=== PATIENT | female | born 1940 | race African-American/Black ===

== ENCOUNTER 2016-10-15 17:53 | Emergency (ER) | payer MEDICARE ==
[~2016-10-15] VITALS: Ht 160 cm; Wt 84.0 kg
[2016-10-15] MEDS ORDERED: LOSA100T14 PO (18:06)
[2016-10-15] MEDS ORDERED: SIMV40TA5 PO (18:06)
[2016-10-15] MEDS ORDERED: ASPI-1035 PO (18:06)
[2016-10-15] MEDS ORDERED: IBUP-1509 PO (18:06)
[2016-10-15] MEDS ORDERED: ATEN50TA PO (18:06)
[2016-10-15] MEDS ORDERED: OMEP20TA80 PO (18:06)
[2016-10-15] MEDS ORDERED: LEVO50TA8 PO (18:06)
[2016-10-15] MEDS ORDERED: KETOROLAC 30MG/ML VIAL IV STA (19:00)
[2016-10-15] MEDS ORDERED: MORPHINE SULFATE 4 MG/ML CPJ (NOT FOR IM USE) IV STA (19:00)
[2016-10-15] MEDS ORDERED: ONDANSETRON HCL 4MG/2ML VIAL IV STA (19:00)
[2016-10-15 19:14] LABS: BASOPHILS % 0.5 % (0.0-2.0); DIFFERENTIAL COMMENT 0; EOSINOPHILS % 4.6 % (0.0-5.0); HEMATOCRIT. 39.7 % (36.0-48.0); HEMOGLOBIN. 13.8 g/dL (12.0-16.0); MEAN CORPUSCULAR HGB CONC 34.8 g/dL (31.0-37.0); MEAN CORPUSCULAR VOLUME 94.7 fL (81.0-99.0); MEAN PLATELET VOLUME 9.1 fl (7.4-10.4); MONOCYTES % 7.4 % (2.0-8.0); NEUTROPHILS % 48.5 % (40.0-76.0); PLATELET 177 x1000/uL (130-400); RED CELL DISTRIBUTION WIDTH 13.2 % (11.6-14.6); WHITE BLOOD COUNT 4.7 x1000/uL (4.5-11.0)
[2016-10-15 19:21] LABS: INR 1.1
[2016-10-15 19:31] LABS: ALANINE AMINOTRANSFERASE 15 IU/L (13-61); ALBUMIN 3.5 g/dL (3.4-5.0); ANION GAP 12; CALCIUM 9.3 mg/dL (8.5-10.1); CARBON DIOXIDE 27 mEq/L (21-32); CHLORIDE 104 mEq/L (98-107); CREATINE KINASE 111 IU/L (26-192); INDEX HEMOLYSI 1 (1-3); INDEX ICTERIC 1 (1-4); INDEX LIPEMIC 1 (1-3); LIPASE 179 IU/L (73-393); NT PRO B-TYPE NATRIURETIC PEP 27 pg/mL (5-125); TROPONIN I < 0.02 ng/mL (0.00-0.04); UREA NITROGEN BLOOD 15 mg/dL (7-21); eGFR 44 mL/min (>60)
[2016-10-15 21:25] VITALS: BP 106/55
[2016-10-15 21:46] LABS: CLARITY URINE CLOUDY (CLEAR); COLOR URINE DARK YELLOW (YELLOW); GLUCOSE URINE NEGATIVE (NEGATIVE); KETONES URINE TRACE (NEGATIVE); LEUKOCYTE ESTERASE URINE 2+ (NEGATIVE); NITRITE URINE NEGATIVE (NEGATIVE); OCCULT BLOOD URINE NEGATIVE (NEGATIVE); PH URINE 5.5 (4.5-8.0); PROTEIN URINE TRACE (NEGATIVE); SPECIFIC GRAVITY URINE 1.018 (1.005-1.030)
[2016-10-15 22:29] LABS: BACTERIA URINE 3+; RBC URINE 0-2 /hpf (0-2)
[2016-10-15 22:30] LABS: MUCUS URINE 2+ /lpf (< = 2+); SQUAMOUS EPITHELIAL CELL URINE 2+ /lpf (RARE/1+); WBC URINE 25-50 /hpf (0-2)
== END 2016-10-15 22:57 | disposition home or self-care (01) ==
LOC: ER 17:54
DX: S76.011A Strain of muscle, fascia and tendon of right hip, initial encounter (principal); D21.9 Benign neoplasm of connective and other soft tissue, unspecified; M19.90 Unspecified osteoarthritis, unspecified site; I10 Essential (primary) hypertension; F17.210 Nicotine dependence, cigarettes, uncomplicated; Z79.1 Long term (current) use of non-steroidal anti-inflammatories (NSAID); Z79.899 Other long term (current) drug therapy; X58.XXXA Exposure to other specified factors, initial encounter; Y93.89 Activity, other specified; Y92.89 Other specified places as the place of occurrence of the external cause; Y99.8 Other external cause status
CPT/HCPCS: 36415; 72170; 74176; 80053; 81001; 82550; 83690; 83880; 84484; 85025; 85610; 93970; 96374; 99285; J1885

== ENCOUNTER 2021-12-23 23:26 | Inpatient (IN) | payer MEDICARE, MEDICAID ==
[~2021-12-23] VITALS: Ht 152.4 cm; Wt 49.0 kg
[~2021-12-23 23:26] MED LIST: ASPI-1497 PO; ATEN50TA PO; IBUP-2028 PO; LEVO50TA8 PO; LOSA100T32 PO; OMEP20TA23 PO; SIMV-46 PO
[2021-12-24] MEDS ORDERED: VANCOMYCIN 1G PREMIX 200 ML IV ONE (00:30)
[2021-12-24] MEDS ORDERED: PIPERACILLIN/TAZ 3.375G PREMIX 50 ML IV ONE (00:30)
[2021-12-24] MEDS ORDERED: AZITHROMYCIN 500MG/250ML 250 ML IV ONE (00:30)
[2021-12-24] MEDS ORDERED: SODIUM CHLORIDE 0.9% 1000ML BAG (SEPSIS BOLUS) IV ONE (00:30)
[2021-12-24 00:44] LABS: BASOPHILS % 0.7 % (0.0-2.0); EOSINOPHILS % 0.1 % (0.0-5.0); HEMATOCRIT. 38.7 % (36.0-48.0); HEMOGLOBIN. 13.1 g/dL (12.0-16.0); LYMPHOCYTES % 9.3 % (20.0-50.0); MEAN CORPUSCULAR HEMOGLOBIN 32.8 pg (28.0-32.0); MEAN CORPUSCULAR VOLUME 97.2 fL (81.0-99.0); MONOCYTES % 10.7 % (2.0-8.0); NEUTROPHILS % 79.2 % (40.0-76.0); PLATELET 206 x1000/uL (130-400); RED BLOOD CELL COUNT 3.98 mill/uL (4.2-5.4); RED CELL DISTRIBUTION WIDTH 13.2 % (11.6-14.6)
[2021-12-24] MEDS ORDERED: VANCOMYCIN 1GM PMX (XELLIA) 200 ML IV NR (00:45)
[2021-12-24 00:50] LABS: CHLORIDE 105 mEq/L (98-107)
[2021-12-24 01:35] LABS: PROTHROMBIN TIME 10.9 sec (9.6-11.0)
[2021-12-24 02:11] LABS: CLARITY URINE CLEAR (CLEAR); COLOR URINE YELLOW (YELLOW); KETONES URINE NEGATIVE (NEGATIVE); LEUKOCYTE ESTERASE URINE 1+ (NEGATIVE); NITRITE URINE NEGATIVE (NEGATIVE); OCCULT BLOOD URINE NEGATIVE (NEGATIVE); PH URINE 5.5 (4.5-8.0); PROTEIN URINE NEGATIVE (NEGATIVE); UROBILINOGEN URINE 0.2 E.U./dL (0.2-1.0)
[2021-12-24] MEDS ORDERED: IPRATROPIUM/ALBUTEROL 0.5-3(2.5)MG/3ML NEB HHN PRN (07:00)
[2021-12-24] MEDS ORDERED: TRAMADOL 50MG TABLET PO PRN (07:00)
[2021-12-24] MEDS ORDERED: ACETAMINOPHEN 325MG TABLET PO PRN (07:00)
[2021-12-24] MEDS ORDERED: CLONIDINE 0.1MG TABLET PO PRN (07:00)
[2021-12-24] MEDS ORDERED: NA PHOS,M-B/NA PHOS,DI-BA ENEMA 118ML PR PRN (07:00)
[2021-12-24] MEDS ORDERED: NITROGLYCERIN 0.4MG TABLET SL SL PRN (07:00)
[2021-12-24] MEDS ORDERED: MAGNESIUM/ALUMINUM HYDROXIDE/SIMETHICONE 30ML UDC PO PRN (07:00)
[2021-12-24] MEDS ORDERED: DOCUSATE SODIUM 100MG CAPSULE PO PRN (07:00)
[2021-12-24] MEDS ORDERED: GUAIFENESIN 200MG/10ML SUGAR FREE UDC PO PRN (07:00)
[2021-12-24] MEDS ORDERED: PIPERACILLIN/TAZ 3.375G PREMIX 50 ML IV SCH (07:15)
[2021-12-24 07:36] LABS: T4 FREE 1.46 ng/dL (0.76-1.46)
[2021-12-24 07:57] LABS: FOLIC ACID (FOLATE) SERUM 10.4 ng/mL (>5.38)
[2021-12-24 09:00] VITALS: BP 127/75
[2021-12-24] MEDS: ASPIRIN 325MG EC TABLET PO SCH ×2 (10:30→12:49)
[2021-12-24] MEDS ORDERED: NALOXONE HCL 0.4MG/ML VIAL IV PRN (10:30)
[2021-12-24] MEDS: ASCORBIC ACID 500 MG TABLET PO SCH ×3 (10:30→21:00)
[2021-12-24] MEDS: FAMOTIDINE 20MG TABLET PO SCH ×2 (10:30→12:49)
[2021-12-24] MEDS: LEVOTHYROXINE SODIUM 100MCG TABLET PO SCH ×2 (10:30→12:49)
[2021-12-24] MEDS: ZINC SULFATE 220 MG ( 50 ) CAPSULE PO SCH ×2 (10:30→12:49)
[2021-12-24] MEDS ORDERED: CLON0.1T MT (10:33)
[2021-12-24] MEDS ORDERED: MELA3TAB40 MT (10:33)
[2021-12-24] MEDS ORDERED: FAMO20TA8 MT (10:33)
[2021-12-24] MEDS ORDERED: LEVO125T8 MT (10:33)
[2021-12-24 12:00] VITALS: BP 122/81
[2021-12-24] MEDS: ENOXAPARIN 40MG/0.4ML SYR SUBCUT SCH (12:47)
[2021-12-24] MEDS: PIPERACILLIN/TAZOBACTAM 3.375G in DEXT 5% WATER 50ML IV SCH ×2 (12:48→22:39)
[2021-12-24 16:00] VITALS: BP 118/77
[2021-12-24 16:15] LABS: CREATINE KINASE MB FRACTION 1.6 ng/mL (0.5-3.6)
[2021-12-24] MEDS: ONDANSETRON HCL 4MG/2ML INJ IV PRN (17:09)
[2021-12-24] MEDS: VANCOMYCIN 750MG PREMIX 150 ML IV SCH (19:04)
[2021-12-24] MEDS ORDERED: NON FORMULARY PATIENT HOME MED XX SCH (19:45)
[2021-12-24 20:00] VITALS: BP 107/51
[2021-12-24] MEDS ORDERED: ZOLPIDEM TARTRATE 5MG TABLET PO PRN (21:00)
[2021-12-25] VITALS: BP 110/51
[2021-12-25 00:35] LABS: CREATINE KINASE MB FRACTION 1.7 ng/mL (0.5-3.6)
[2021-12-25] MEDS: KETOROLAC 15MG/ML VIAL IV PRN (02:21)
[2021-12-25 04:00] VITALS: BP 137/63
[2021-12-25 05:40] LABS: BASOPHILS % 0.4 % (0.0-2.0); EOSINOPHILS % 0.9 % (0.0-5.0); HEMATOCRIT. 36.1 % (36.0-48.0); HEMOGLOBIN. 12.3 g/dL (12.0-16.0); LYMPHOCYTES % 18.1 % (20.0-50.0); MEAN PLATELET VOLUME 8.6 fl (7.4-10.4); MONOCYTES % 10.3 % (2.0-8.0); NEUTROPHILS % 70.3 % (40.0-76.0); PLATELET 156 x1000/uL (130-400); RED BLOOD CELL COUNT 3.72 mill/uL (4.2-5.4); RED CELL DISTRIBUTION WIDTH 13.3 % (11.6-14.6)
[2021-12-25 05:58] LABS: CHLORIDE 103 mEq/L (98-107)
[2021-12-25 06:08] LABS: PHOSPHORUS 2.7 mg/dL (2.5-4.9)
[2021-12-25] MEDS: PIPERACILLIN/TAZOBACTAM 3.375G in DEXT 5% WATER 50ML IV SCH ×3 (06:15→22:18)
[2021-12-25] MEDS: LEVOTHYROXINE SODIUM 100MCG TABLET PO SCH (06:34)
[2021-12-25 08:06] VITALS: BP 113/70
[2021-12-25] MEDS: ASPIRIN 325MG EC TABLET PO SCH (09:00)
[2021-12-25] MEDS: ZINC SULFATE 220 MG ( 50 ) CAPSULE PO SCH (09:00)
[2021-12-25] MEDS: FAMOTIDINE 20MG TABLET PO SCH (09:00)
[2021-12-25] MEDS: ASCORBIC ACID 500 MG TABLET PO SCH ×2 (09:00→20:29)
[2021-12-25] MEDS ORDERED: HALOPERIDOL LACTATE 5MG/ML VIAL IM SCH (10:00)
[2021-12-25] MEDS: ENOXAPARIN 40MG/0.4ML SYR SUBCUT SCH (11:27)
[2021-12-25 12:19] VITALS: BP 126/68
[2021-12-25] MEDS: VANCOMYCIN 750MG PREMIX 150 ML IV SCH (13:46)
[2021-12-25] MEDS: DEXT 5%/0.9% NACL 1,000 ML IV SCH (13:47)
[2021-12-25 16:00] VITALS: BP 121/72
[2021-12-25 20:00] VITALS: BP 122/69
[2021-12-26] VITALS: BP 148/74
[2021-12-26] MEDS: DEXT 5%/0.9% NACL 1,000 ML IV SCH ×2 (00:20→14:22)
[2021-12-26 04:00] VITALS: BP 118/81
[2021-12-26] MEDS: VANCOMYCIN 750MG PREMIX 150 ML IV SCH (05:04)
[2021-12-26] MEDS: PIPERACILLIN/TAZOBACTAM 3.375G in DEXT 5% WATER 50ML IV SCH ×3 (05:05→21:53)
[2021-12-26] MEDS: LEVOTHYROXINE SODIUM 100MCG TABLET PO SCH (06:47)
[2021-12-26 07:21] LABS: CHLORIDE 102 mEq/L (98-107)
[2021-12-26 08:30] VITALS: BP 154/98
[2021-12-26] MEDS ORDERED: POTASSIUM CHLORIDE 20MEQ TABLET SR PO NR (11:30)
[2021-12-26] MEDS: ASCORBIC ACID 500 MG TABLET PO SCH ×2 (11:35→21:53)
[2021-12-26] MEDS: ZINC SULFATE 220 MG ( 50 ) CAPSULE PO SCH (11:35)
[2021-12-26] MEDS: ASPIRIN 325MG EC TABLET PO SCH (11:35)
[2021-12-26] MEDS: FAMOTIDINE 20MG TABLET PO SCH (11:35)
[2021-12-26 12:00] VITALS: BP 141/82
[2021-12-26] MEDS: ENOXAPARIN 40MG/0.4ML SYR SUBCUT SCH (12:09)
[2021-12-26 16:00] VITALS: BP 153/92
[2021-12-26] MEDS: KETOROLAC 15MG/ML VIAL IV PRN (16:55)
[2021-12-26] MEDS: ONDANSETRON HCL 4MG/2ML INJ IV PRN (17:53)
[2021-12-26] MEDS: METOPROLOL TARTRATE 25MG TABLET PO SCH (17:53)
[2021-12-26 20:00] VITALS: BP 135/86
[2021-12-26] MEDS: LACTULOSE 20G/30ML UDC PO SCH (21:53)
[2021-12-26] MEDS: VANCOMYCIN 1GM PMX (XELLIA) 200 ML IV SCH (22:29)
[2021-12-27] VITALS: BP 143/76
[2021-12-27] MEDS: DEXT 5%/0.9% NACL 1,000 ML IV SCH ×2 (02:24→16:20)
[2021-12-27 04:00] VITALS: BP 139/73
[2021-12-27] MEDS: METOPROLOL TARTRATE 25MG TABLET PO SCH ×2 (06:20→18:31)
[2021-12-27] MEDS: PIPERACILLIN/TAZOBACTAM 3.375G in DEXT 5% WATER 50ML IV SCH ×3 (06:20→20:37)
[2021-12-27] MEDS: LEVOTHYROXINE SODIUM 100MCG TABLET PO SCH (06:20)
[2021-12-27 07:10] LABS: CHLORIDE 106 mEq/L (98-107)
[2021-12-27 08:00] VITALS: BP 140/74
[2021-12-27] MEDS: ASCORBIC ACID 500 MG TABLET PO SCH ×2 (10:09→20:38)
[2021-12-27] MEDS: ZINC SULFATE 220 MG ( 50 ) CAPSULE PO SCH (10:09)
[2021-12-27] MEDS: LACTULOSE 20G/30ML UDC PO SCH (10:09)
[2021-12-27] MEDS: FAMOTIDINE 20MG TABLET PO SCH (10:09)
[2021-12-27] MEDS: ENOXAPARIN 40MG/0.4ML SYR SUBCUT SCH (10:22)
[2021-12-27] MEDS: ASPIRIN 325MG EC TABLET PO SCH (10:25)
[2021-12-27 12:00] VITALS: BP 135/76
[2021-12-27 16:00] VITALS: BP 142/81
[2021-12-27] MEDS: METOCLOPRAMIDE HCL 10MG/2ML VIAL IV SCH (18:30)
[2021-12-27] MEDS: VANCOMYCIN 1GM PMX (XELLIA) 200 ML IV SCH (18:31)
[2021-12-27 20:00] VITALS: BP 151/87
[2021-12-27] MEDS: PANTOPRAZOLE SODIUM 40 MG/VIAL IV SCH (20:41)
[2021-12-28] VITALS: BP 152/82
[2021-12-28] MEDS: METOCLOPRAMIDE HCL 10MG/2ML VIAL IV SCH ×4 (00:38→17:17)
[2021-12-28] MEDS: TRAMADOL 50MG TABLET PO PRN ×2 (00:39→17:17)
[2021-12-28 03:18] LABS: BASOPHILS % 0.5 % (0.0-2.0); EOSINOPHILS % 1.9 % (0.0-5.0); HEMATOCRIT. 37.7 % (36.0-48.0); HEMOGLOBIN. 12.7 g/dL (12.0-16.0); LYMPHOCYTES % 27.2 % (20.0-50.0); MEAN CORPUSCULAR HEMOGLOBIN 32.8 pg (28.0-32.0); MEAN CORPUSCULAR VOLUME 97.3 fL (81.0-99.0); MONOCYTES % 12.2 % (2.0-8.0); NEUTROPHILS % 58.2 % (40.0-76.0); PLATELET 182 x1000/uL (130-400); RED BLOOD CELL COUNT 3.88 mill/uL (4.2-5.4); RED CELL DISTRIBUTION WIDTH 13.4 % (11.6-14.6)
[2021-12-28 03:36] LABS: INR 1.1; PROTHROMBIN TIME 11.5 sec (9.6-11.0)
[2021-12-28 03:39] LABS: CHLORIDE 105 mEq/L (98-107)
[2021-12-28 04:00] VITALS: BP 134/80
[2021-12-28] MEDS: METOPROLOL TARTRATE 25MG TABLET PO SCH ×2 (06:00→17:17)
[2021-12-28] MEDS: LEVOTHYROXINE SODIUM 100MCG TABLET PO SCH (06:09)
[2021-12-28] MEDS: PIPERACILLIN/TAZOBACTAM 3.375G in DEXT 5% WATER 50ML IV SCH ×3 (06:10→21:41)
[2021-12-28] MEDS: DEXT 5%/0.9% NACL 1,000 ML IV SCH ×2 (06:14→18:50)
[2021-12-28 08:00] VITALS: BP 150/76
[2021-12-28] MEDS: LACTULOSE 20G/30ML UDC PO SCH (09:00)
[2021-12-28] MEDS: ASCORBIC ACID 500 MG TABLET PO SCH ×2 (09:00→21:41)
[2021-12-28] MEDS: ZINC SULFATE 220 MG ( 50 ) CAPSULE PO SCH (09:00)
[2021-12-28] MEDS: PANTOPRAZOLE SODIUM 40 MG/VIAL IV SCH ×2 (09:06→21:41)
[2021-12-28] MEDS ORDERED: DEXAMETHASONE 4MG/ML 1ML VIAL ONE (09:21)
[2021-12-28] MEDS ORDERED: ONDANSETRON HCL 4MG/2ML INJ ONE (09:21)
[2021-12-28 12:00] VITALS: BP 149/85
[2021-12-28] MEDS ORDERED: VANCOMYCIN 1GM PMX (XELLIA) 200 ML IV SCH (13:00)
[2021-12-28 16:00] VITALS: BP 138/79
[2021-12-28] MEDS ORDERED: METOPROLOL SUCCINATE 50MG ER TABLET PO NR (16:45)
[2021-12-28] MEDS ORDERED: METOPROLOL TARTRATE 25MG TABLET PO SCH (17:00)
[2021-12-28 20:00] VITALS: BP 102/57
[2021-12-29] VITALS: BP 94/57
[2021-12-29] MEDS: METOCLOPRAMIDE HCL 10MG/2ML VIAL IV SCH ×4 (00:41→17:35)
[2021-12-29 04:00] VITALS: BP 115/59
[2021-12-29] MEDS: METOPROLOL TARTRATE 25MG TABLET PO SCH ×2 (05:24→17:35)
[2021-12-29] MEDS: PIPERACILLIN/TAZOBACTAM 3.375G in DEXT 5% WATER 50ML IV SCH (06:09)
[2021-12-29 08:00] VITALS: BP 112/52
[2021-12-29 08:45] LABS: BASOPHILS % 0.2 % (0.0-2.0); EOSINOPHILS % 1.2 % (0.0-5.0); HEMATOCRIT. 33.6 % (36.0-48.0); HEMOGLOBIN. 11.4 g/dL (12.0-16.0); LYMPHOCYTES % 10.9 % (20.0-50.0); MEAN CORPUSCULAR HEMOGLOBIN 32.9 pg (28.0-32.0); MEAN CORPUSCULAR VOLUME 96.6 fL (81.0-99.0); MEAN PLATELET VOLUME 9.1 fl (7.4-10.4); MONOCYTES % 5.7 % (2.0-8.0); PLATELET 175 x1000/uL (130-400); RED BLOOD CELL COUNT 3.48 mill/uL (4.2-5.4); RED CELL DISTRIBUTION WIDTH 13.1 % (11.6-14.6)
[2021-12-29 09:06] LABS: CHLORIDE 105 mEq/L (98-107)
[2021-12-29] MEDS: LEVOTHYROXINE SODIUM 100MCG TABLET PO SCH (09:22)
[2021-12-29] MEDS: PANTOPRAZOLE SODIUM 40 MG/VIAL IV SCH ×2 (09:22→21:28)
[2021-12-29] MEDS: ENOXAPARIN 30MG/0.3ML SYR SUBCUT SCH (09:22)
[2021-12-29] MEDS: ZINC SULFATE 220 MG ( 50 ) CAPSULE PO SCH (09:22)
[2021-12-29] MEDS: ASCORBIC ACID 500 MG TABLET PO SCH ×2 (09:22→21:27)
[2021-12-29] MEDS: ASPIRIN 325MG EC TABLET PO SCH (09:22)
[2021-12-29] MEDS: LACTULOSE 20G/30ML UDC PO SCH (09:22)
[2021-12-29] MEDS: DEXT 5%/0.9% NACL 1,000 ML IV SCH (09:22)
[2021-12-29 12:00] VITALS: BP 121/61
[2021-12-29 16:00] VITALS: BP 125/74
[2021-12-29 20:00] VITALS: BP 169/74
[2021-12-29] MEDS: ZOLPIDEM TARTRATE 5MG TABLET PO PRN (21:32)
[2021-12-30] VITALS: BP 148/78
[2021-12-30] MEDS: ACETAMINOPHEN 325MG TABLET PO PRN (01:18)
[2021-12-30] MEDS: METOCLOPRAMIDE HCL 10MG/2ML VIAL IV SCH ×5 (01:19→23:35)
[2021-12-30 04:00] VITALS: BP 168/84
[2021-12-30] MEDS: LEVOTHYROXINE SODIUM 100MCG TABLET PO SCH (06:33)
[2021-12-30] MEDS: METOPROLOL TARTRATE 25MG TABLET PO SCH ×2 (06:34→17:21)
[2021-12-30 08:00] VITALS: BP 179/80
[2021-12-30 08:27] LABS: BASOPHILS % 0.4 % (0.0-2.0); EOSINOPHILS % 1.8 % (0.0-5.0); LYMPHOCYTES % 19.1 % (20.0-50.0); MEAN CORPUSCULAR HEMOGLOBIN 32.5 pg (28.0-32.0); MEAN CORPUSCULAR VOLUME 97.4 fL (81.0-99.0); MEAN PLATELET VOLUME 9.3 fl (7.4-10.4); MONOCYTES % 8.2 % (2.0-8.0); NEUTROPHILS % 70.5 % (40.0-76.0); PLATELET 196 x1000/uL (130-400); RED BLOOD CELL COUNT 4.11 mill/uL (4.2-5.4); RED CELL DISTRIBUTION WIDTH 13.4 % (11.6-14.6)
[2021-12-30 08:28] LABS: CHLORIDE 101 mEq/L (98-107)
[2021-12-30 08:31] LABS: HEMOGLOBIN. 13.4 g/dL (12.0-16.0)
[2021-12-30] MEDS: LACTULOSE 20G/30ML UDC PO SCH (09:16)
[2021-12-30] MEDS: ZINC SULFATE 220 MG ( 50 ) CAPSULE PO SCH (09:16)
[2021-12-30] MEDS: ENOXAPARIN 30MG/0.3ML SYR SUBCUT SCH (09:16)
[2021-12-30] MEDS: PANTOPRAZOLE SODIUM 40 MG/VIAL IV SCH ×2 (09:16→21:12)
[2021-12-30] MEDS: ASPIRIN 325MG EC TABLET PO SCH (09:16)
[2021-12-30] MEDS: ASCORBIC ACID 500 MG TABLET PO SCH ×2 (09:17→21:12)
[2021-12-30 11:28] VITALS: BP 150/70
[2021-12-30] MEDS ORDERED: LACTULOSE 20G/30ML UDC GT NR (12:45)
[2021-12-30 15:35] VITALS: BP 140/66
[2021-12-30 20:00] VITALS: BP 151/64
[2021-12-30] MEDS: ZOLPIDEM TARTRATE 5MG TABLET PO PRN (23:35)
[2021-12-31] VITALS: BP 157/75
[2021-12-31 04:00] VITALS: BP 147/88
[2021-12-31] MEDS: METOCLOPRAMIDE HCL 10MG/2ML VIAL IV SCH ×3 (05:07→18:11)
[2021-12-31] MEDS: METOPROLOL TARTRATE 25MG TABLET PO SCH ×2 (05:07→18:10)
[2021-12-31] MEDS: LEVOTHYROXINE SODIUM 100MCG TABLET PO SCH (06:21)
[2021-12-31 08:00] VITALS: BP 116/62
[2021-12-31] MEDS ORDERED: DOCUSATE SODIUM SUGAR FREE 100MG/10ML UDC GT SCH (09:00)
[2021-12-31] MEDS ORDERED: ENOXAPARIN 30MG/0.3ML SYR SUBCUT SCH (09:00)
[2021-12-31] MEDS ORDERED: SENNOSIDES 8.6MG TABLET GT PRN (09:00)
[2021-12-31] MEDS: ZINC SULFATE 220 MG ( 50 ) CAPSULE PO SCH (09:13)
[2021-12-31] MEDS: LACTULOSE 20G/30ML UDC PO SCH (09:13)
[2021-12-31] MEDS: PANTOPRAZOLE SODIUM 40 MG/VIAL IV SCH ×2 (09:13→21:03)
[2021-12-31] MEDS: ASCORBIC ACID 500 MG TABLET PO SCH ×2 (09:14→21:03)
[2021-12-31] MEDS: ASPIRIN 325MG EC TABLET PO SCH (09:14)
[2021-12-31] MEDS ORDERED: BISACODYL 10MG SUPP PR NR (11:45)
[2021-12-31 12:00] VITALS: BP 125/74
[2021-12-31 16:00] VITALS: BP 132/86
[2021-12-31 19:40] VITALS: BP 121/85
[2022-01-01] VITALS: BP 107/68
[2022-01-01] MEDS: METOCLOPRAMIDE HCL 10MG/2ML VIAL IV SCH ×2 (00:33→05:43)
[2022-01-01] MEDS: ZOLPIDEM TARTRATE 5MG TABLET PO PRN (00:33)
[2022-01-01] MEDS: ACETAMINOPHEN 325MG TABLET PO PRN (01:57)
[2022-01-01 03:12] VITALS: BP 141/73
[2022-01-01 04:00] VITALS: BP 141/73
[2022-01-01] MEDS: METOPROLOL TARTRATE 25MG TABLET PO SCH (05:44)
[2022-01-01] MEDS: LEVOTHYROXINE SODIUM 100MCG TABLET PO SCH (06:15)
[2022-01-01 08:19] LABS: HEMATOCRIT. 35.2 % (36.0-48.0); HEMOGLOBIN. 11.8 g/dL (12.0-16.0); MEAN CORPUSCULAR HEMOGLOBIN 32.4 pg (28.0-32.0); MEAN CORPUSCULAR VOLUME 96.6 fL (81.0-99.0); MEAN PLATELET VOLUME 9.6 fl (7.4-10.4); PLATELET 188 x1000/uL (130-400); RED BLOOD CELL COUNT 3.64 mill/uL (4.2-5.4); RED CELL DISTRIBUTION WIDTH 13.3 % (11.6-14.6)
[2022-01-01 08:25] VITALS: BP 151/72
[2022-01-01 09:02] LABS: CHLORIDE 101 mEq/L (98-107)
[2022-01-01 16:29] LABS: PLATELET ESTIMATE NORMAL
== END 2022-01-01 11:00 | disposition home health service (06) | DRG 64 ==
LOC: ER 23:26 → 6WST 12-24 05:08 → ENRESERV 12-24 07:14 → 6WST 12-25 02:45
PROVIDERS: ADMIT Internal Medicine; ATTEND Internal Medicine
PROC: 0DH63UZ Insertion of Feeding Device into Stomach, Percutaneous Approach (ICD-10-PCS; principal; 2021-12-28)
PROC: 0DB78ZX Excision of Stomach, Pylorus, Via Natural or Artificial Opening Endoscopic, Diagnostic (ICD-10-PCS; 2021-12-28)
DX: I63.81 Other cerebral infarction due to occlusion or stenosis of small artery (principal); G92.8 Other toxic encephalopathy; N39.0 Urinary tract infection, site not specified; E44.1 Mild protein-calorie malnutrition; E03.9 Hypothyroidism, unspecified; Z90.710 Acquired absence of both cervix and uterus; R06.02 Shortness of breath; R13.12 Dysphagia, oropharyngeal phase; E78.00 Pure hypercholesterolemia, unspecified; I10 Essential (primary) hypertension; F03.90 Unspecified dementia, unspecified severity, without behavioral disturbance, psychotic disturbance, mood disturbance, and anxiety; M19.90 Unspecified osteoarthritis, unspecified site; D72.819 Decreased white blood cell count, unspecified; E87.6 Hypokalemia; K21.9 Gastro-esophageal reflux disease without esophagitis; K29.50 Unspecified chronic gastritis without bleeding; Z20.822 Contact with and (suspected) exposure to COVID-19; Z78.1 Physical restraint status; Z90.10 Acquired absence of unspecified breast and nipple; Z87.891 Personal history of nicotine dependence; Z85.3 Personal history of malignant neoplasm of breast; Z82.49 Family history of ischemic heart disease and other diseases of the circulatory system; Z68.21 Body mass index [BMI] 21.0-21.9, adult; Z79.899 Other long term (current) drug therapy; Z79.82 Long term (current) use of aspirin
CPT/HCPCS: 36415; 70551; 71045; 74018; 80048; 80053; 80061; 80202; 81003; 82550; 82553; 82607; 82746; 83036; 83540; 83550; 83605; 83735; 83880; 84100; 84145; 84439; 84443; 84484; 85025; 87426; 87804; 88305; 88312; 88313; 92610; 93005; 93306; 93970; 99285; C9113; C9803; J0456; J1100; J1630; J1650; J1885; J2405; J2543; J2765; J3370; J7030; J7042; J7060; A4315